=== PATIENT | female | born 1940 | race Caucasian/White ===

== ENCOUNTER 2016-03-31 | Outpatient (CLI) | payer MEDICARE, OTHER | END 2016-03-31 14:11 | disposition short-term general hospital (02) | DX: R00.2 Palpitations (principal) | CPT/HCPCS: A0170; A0425; A0426 ==

== ENCOUNTER 2016-03-31 08:45 | Emergency (ER) | payer MEDICARE, OTHER ==
[2016-03-31] MEDS ORDERED: METOPROLOL 5 MG/5 ML VIAL IVP ONE ×2 (09:30→10:37)
[2016-03-31] MEDS ORDERED: METOPROLOL TARTRATE 25 MG TABLET ONE (12:58)
== END 2016-03-31 14:10 | disposition short-term general hospital (02) ==
DX: I48.92 Unspecified atrial flutter (principal); R55 Syncope and collapse; I42.9 Cardiomyopathy, unspecified
CPT/HCPCS: 36415; 80048; 84484; 85025; 93005; 93010; 96374; 96376; 99284; 99285; A9270

== ENCOUNTER 2016-04-04 10:29 | Outpatient (CLI) | payer MEDICARE, OTHER | END 2016-04-04 10:30 | disposition home or self-care (01) | DX: I48.91 Unspecified atrial fibrillation (principal); Z79.01 Long term (current) use of anticoagulants ==

== ENCOUNTER 2016-04-11 13:34 | Outpatient (CLI) | payer MEDICARE, OTHER | END 2016-04-11 13:35 | disposition home or self-care (01) | DX: Z79.01 Long term (current) use of anticoagulants (principal); I48.91 Unspecified atrial fibrillation ==

== ENCOUNTER 2016-04-18 11:55 | Outpatient (CLI) | payer MEDICARE, OTHER | END 2016-04-18 11:56 | disposition home or self-care (01) | DX: I48.91 Unspecified atrial fibrillation (principal); Z79.01 Long term (current) use of anticoagulants ==

== ENCOUNTER 2016-04-25 11:48 | Outpatient (CLI) | payer MEDICARE, OTHER | END 2016-04-25 11:49 | disposition home or self-care (01) | DX: I48.91 Unspecified atrial fibrillation (principal); Z79.01 Long term (current) use of anticoagulants ==

== ENCOUNTER 2016-05-04 12:19 | Outpatient (CLI) | payer MEDICARE, OTHER | END 2016-05-04 12:20 | disposition home or self-care (01) | DX: I48.91 Unspecified atrial fibrillation (principal); Z79.01 Long term (current) use of anticoagulants ==

== ENCOUNTER 2016-05-14 11:43 | Outpatient (CLI) | payer MEDICARE, OTHER | END 2016-05-14 11:44 | disposition home or self-care (01) | DX: I48.91 Unspecified atrial fibrillation (principal); Z79.01 Long term (current) use of anticoagulants ==

== ENCOUNTER 2016-05-21 23:44 | Emergency (ER) | payer MEDICARE, OTHER ==
[2016-05-22] MEDS ORDERED: oxyCOD/ACETAMIN 5 MG/325 MG TABLET PO STA ×2 (02:35→03:35)
[2016-05-22] MEDS ORDERED: oxyCOD/ACETAMIN 5 MG/325 MG TABLET PO ONE ×2 (02:38→03:38)
== END 2016-05-22 03:51 | disposition home or self-care (01) ==
DX: M96.841 Postprocedural hematoma of a musculoskeletal structure following other procedure (principal); Y83.8 Other surgical procedures as the cause of abnormal reaction of the patient, or of later complication, without mention of misadventure at the time of the procedure; Z79.01 Long term (current) use of anticoagulants; R03.0 Elevated blood-pressure reading, without diagnosis of hypertension; M54.5 Low back pain; R01.1 Cardiac murmur, unspecified
CPT/HCPCS: 36415; 85025; 85610; 93971; 99283; 99284; A9270

== ENCOUNTER 2016-05-29 11:42 | Outpatient (CLI) | payer MEDICARE, OTHER | END 2016-05-29 11:43 | disposition home or self-care (01) | DX: I48.91 Unspecified atrial fibrillation (principal); Z79.01 Long term (current) use of anticoagulants ==

== ENCOUNTER 2016-06-05 12:14 | Outpatient (CLI) | payer MEDICARE, OTHER | END 2016-06-05 12:15 | disposition home or self-care (01) | DX: I48.91 Unspecified atrial fibrillation (principal); Z79.01 Long term (current) use of anticoagulants ==

== ENCOUNTER 2016-06-19 11:57 | Outpatient (CLI) | payer MEDICARE, OTHER | END 2016-06-19 11:58 | disposition home or self-care (01) | DX: Z79.01 Long term (current) use of anticoagulants (principal); I48.91 Unspecified atrial fibrillation ==

== ENCOUNTER 2016-07-04 11:57 | Outpatient (CLI) | payer MEDICARE, OTHER | END 2016-07-04 11:58 | disposition home or self-care (01) | DX: Z79.01 Long term (current) use of anticoagulants (principal); I48.91 Unspecified atrial fibrillation ==

== ENCOUNTER 2016-08-01 16:46 | Outpatient (CLI) | payer MEDICARE, OTHER | END 2016-08-01 16:47 | disposition home or self-care (01) | LOC: LAB 16:46 | PROVIDERS: ATTEND Internal Medicine | DX: Z79.01 Long term (current) use of anticoagulants (principal) | CPT/HCPCS: 85610 ==

== ENCOUNTER 2016-09-05 13:11 | Outpatient (CLI) | payer MEDICARE, OTHER | END 2016-09-05 13:12 | disposition home or self-care (01) | LOC: LAB 13:11 | PROVIDERS: ATTEND Internal Medicine | DX: Z79.01 Long term (current) use of anticoagulants (principal) | CPT/HCPCS: 85610 ==

== ENCOUNTER 2016-09-12 13:42 | Outpatient (CLI) | payer MEDICARE, OTHER | END 2016-09-12 13:43 | disposition home or self-care (01) | LOC: LAB 13:42 | PROVIDERS: ATTEND Internal Medicine | DX: Z79.01 Long term (current) use of anticoagulants (principal) | CPT/HCPCS: 85610 ==

== ENCOUNTER 2016-09-19 17:57 | Outpatient (CLI) | payer MEDICARE, OTHER | END 2016-09-19 17:58 | disposition home or self-care (01) | LOC: LAB 17:57 | PROVIDERS: ATTEND Internal Medicine | DX: I48.91 Unspecified atrial fibrillation (principal); Z79.01 Long term (current) use of anticoagulants | CPT/HCPCS: 85610 ==

== ENCOUNTER 2016-09-26 16:41 | Outpatient (CLI) | payer MEDICARE, OTHER | END 2016-09-26 16:42 | disposition home or self-care (01) | LOC: LAB 16:41 | PROVIDERS: ATTEND Internal Medicine | DX: Z79.01 Long term (current) use of anticoagulants (principal) | CPT/HCPCS: 85610 ==

== ENCOUNTER 2016-10-03 16:55 | Outpatient (CLI) | payer MEDICARE, OTHER | END 2016-10-03 16:56 | disposition home or self-care (01) | LOC: LAB 16:55 | PROVIDERS: ATTEND Internal Medicine | DX: Z79.01 Long term (current) use of anticoagulants (principal) | CPT/HCPCS: 85610 ==

== ENCOUNTER 2016-10-10 17:33 | Outpatient (CLI) | payer MEDICARE, OTHER | END 2016-10-10 17:34 | disposition home or self-care (01) | LOC: LAB 17:33 | PROVIDERS: ATTEND Nurse Practitioner Primary Care | DX: Z79.01 Long term (current) use of anticoagulants (principal) | CPT/HCPCS: 85610 ==

== ENCOUNTER 2016-11-19 11:14 | Outpatient (CLI) | payer MEDICARE, OTHER | END 2016-11-19 11:15 | disposition home or self-care (01) | LOC: LAB 11:14 | PROVIDERS: ATTEND Internal Medicine | DX: I48.91 Unspecified atrial fibrillation (principal); Z79.01 Long term (current) use of anticoagulants | CPT/HCPCS: 85610 ==

== ENCOUNTER 2016-12-17 15:17 | Outpatient (CLI) | payer MEDICARE, OTHER | END 2016-12-17 15:18 | disposition home or self-care (01) | LOC: LAB 15:17 | PROVIDERS: ATTEND Internal Medicine | DX: Z79.01 Long term (current) use of anticoagulants (principal); I48.91 Unspecified atrial fibrillation | CPT/HCPCS: 85610 ==

== ENCOUNTER 2017-01-15 11:44 | Outpatient (CLI) | payer MEDICARE, OTHER | END 2017-01-15 11:45 | disposition home or self-care (01) | LOC: LAB 11:44 | PROVIDERS: ATTEND Internal Medicine | DX: Z79.01 Long term (current) use of anticoagulants (principal); I48.91 Unspecified atrial fibrillation | CPT/HCPCS: 85610 ==

== ENCOUNTER 2017-02-13 10:41 | Outpatient (CLI) | payer MEDICARE, OTHER | END 2017-02-13 10:42 | disposition home or self-care (01) | LOC: LAB 10:41 | PROVIDERS: ATTEND Internal Medicine | DX: Z79.01 Long term (current) use of anticoagulants (principal); I48.91 Unspecified atrial fibrillation | CPT/HCPCS: 85610 ==

== ENCOUNTER 2017-02-27 16:52 | Outpatient (CLI) | payer MEDICARE, OTHER | END 2017-02-27 16:53 | disposition home or self-care (01) | LOC: LAB 16:52 | PROVIDERS: ATTEND Internal Medicine | DX: Z79.01 Long term (current) use of anticoagulants (principal); I48.91 Unspecified atrial fibrillation | CPT/HCPCS: 85610 ==

== ENCOUNTER 2017-03-06 14:34 | Outpatient (CLI) | payer MEDICARE, OTHER | END 2017-03-06 14:35 | disposition home or self-care (01) | LOC: LAB 14:34 | PROVIDERS: ATTEND Internal Medicine | DX: Z79.01 Long term (current) use of anticoagulants (principal); I48.91 Unspecified atrial fibrillation | CPT/HCPCS: 85610 ==

== ENCOUNTER 2017-03-13 12:44 | Outpatient (CLI) | payer MEDICARE, OTHER | END 2017-03-13 12:45 | disposition home or self-care (01) | LOC: LAB 12:44 | PROVIDERS: ATTEND Internal Medicine | DX: Z79.01 Long term (current) use of anticoagulants (principal); I48.91 Unspecified atrial fibrillation | CPT/HCPCS: 85610 ==

== ENCOUNTER 2017-03-25 11:15 | Outpatient (CLI) | payer MEDICARE, OTHER | END 2017-03-25 11:16 | disposition home or self-care (01) | LOC: LAB 11:15 | PROVIDERS: ATTEND Internal Medicine | DX: Z79.01 Long term (current) use of anticoagulants (principal); I48.91 Unspecified atrial fibrillation | CPT/HCPCS: 85610 ==

== ENCOUNTER 2017-04-22 11:38 | Outpatient (CLI) | payer MEDICARE, OTHER | END 2017-04-22 11:39 | disposition home or self-care (01) | LOC: LAB 11:38 | PROVIDERS: ATTEND Internal Medicine | DX: I48.91 Unspecified atrial fibrillation (principal); Z79.01 Long term (current) use of anticoagulants | CPT/HCPCS: 85610 ==

== ENCOUNTER 2017-05-22 11:02 | Outpatient (CLI) | payer MEDICARE, OTHER | END 2017-05-22 11:03 | disposition home or self-care (01) | LOC: LAB 11:02 | PROVIDERS: ATTEND Internal Medicine | DX: Z79.01 Long term (current) use of anticoagulants (principal); I48.91 Unspecified atrial fibrillation | CPT/HCPCS: 85610 ==

== ENCOUNTER 2017-06-05 13:01 | Outpatient (CLI) | payer MEDICARE, OTHER | END 2017-06-05 13:02 | disposition home or self-care (01) | LOC: LAB 13:01 | PROVIDERS: ATTEND Internal Medicine | DX: I48.91 Unspecified atrial fibrillation (principal); Z79.01 Long term (current) use of anticoagulants | CPT/HCPCS: 85610 ==

== ENCOUNTER 2017-07-03 10:17 | Outpatient (CLI) | payer MEDICARE, OTHER | END 2017-07-03 10:18 | disposition home or self-care (01) | LOC: LAB 10:17 | PROVIDERS: ATTEND Internal Medicine | DX: I48.91 Unspecified atrial fibrillation (principal); Z79.01 Long term (current) use of anticoagulants | CPT/HCPCS: 85610 ==

== ENCOUNTER 2017-07-31 11:36 | Outpatient (CLI) | payer MEDICARE, OTHER | END 2017-07-31 11:37 | disposition home or self-care (01) | LOC: LAB 11:36 | PROVIDERS: ATTEND Internal Medicine | DX: I48.91 Unspecified atrial fibrillation (principal); Z79.01 Long term (current) use of anticoagulants | CPT/HCPCS: 85610 ==

== ENCOUNTER 2017-08-28 11:58 | Outpatient (CLI) | payer MEDICARE, OTHER | END 2017-08-28 11:59 | disposition home or self-care (01) | LOC: LAB 11:58 | PROVIDERS: ATTEND Internal Medicine | DX: I48.91 Unspecified atrial fibrillation (principal); Z79.01 Long term (current) use of anticoagulants | CPT/HCPCS: 85610 ==

== ENCOUNTER 2017-09-25 11:19 | Outpatient (CLI) | payer MEDICARE, OTHER | END 2017-09-25 11:20 | disposition home or self-care (01) | LOC: LAB 11:19 | PROVIDERS: ATTEND Internal Medicine | DX: I48.91 Unspecified atrial fibrillation (principal); Z79.01 Long term (current) use of anticoagulants | CPT/HCPCS: 85610 ==

== ENCOUNTER 2017-10-14 12:03 | Outpatient (CLI) | payer MEDICARE, OTHER | END 2017-10-14 12:04 | disposition home or self-care (01) | LOC: LAB 12:03 | PROVIDERS: ATTEND Internal Medicine | DX: Z79.01 Long term (current) use of anticoagulants (principal); I48.91 Unspecified atrial fibrillation | CPT/HCPCS: 85610 ==

== ENCOUNTER 2017-11-13 13:08 | Outpatient (CLI) | payer MEDICARE, OTHER | END 2017-11-13 13:09 | disposition home or self-care (01) | LOC: LAB 13:08 | PROVIDERS: ATTEND Internal Medicine | DX: I48.91 Unspecified atrial fibrillation (principal); Z79.01 Long term (current) use of anticoagulants | CPT/HCPCS: 85610 ==

== ENCOUNTER 2017-11-27 13:08 | Outpatient (CLI) | payer MEDICARE, OTHER | END 2017-11-27 13:09 | disposition home or self-care (01) | LOC: LAB 13:08 | PROVIDERS: ATTEND Internal Medicine | DX: Z79.01 Long term (current) use of anticoagulants (principal); I48.91 Unspecified atrial fibrillation | CPT/HCPCS: 85610 ==

== ENCOUNTER 2017-12-25 12:35 | Outpatient (CLI) | payer MEDICARE, OTHER | END 2017-12-25 12:36 | disposition home or self-care (01) | LOC: LAB 12:35 | PROVIDERS: ATTEND Internal Medicine | DX: Z79.01 Long term (current) use of anticoagulants (principal); I48.91 Unspecified atrial fibrillation | CPT/HCPCS: 85610 ==

== ENCOUNTER 2017-12-30 11:57 | Emergency (ER) | payer MEDICARE, OTHER ==
--- NOTE | 2017-12-30 12:30 | ED Physician Documentation ---
PD HPI CHEST PAIN - Stated complaint Stated Complaint: AFIB PER DR WANG - Chief complaint Chief Complaint: Cardiac - History obtained from History obtained from: Patient - History of Present Illness Timing - onset: How many days ago (2) Timing - onset during: Light activity Timing - duration: Days (2) Timing - details: Abrupt onset, Still present, Waxing and waning Quality: Tightness Location: Substernal Improved by: Rest Worsened by: Exertion Associated symptoms: Feeling faint / dizzy, Palpitations. No: Diaphoresis, Nausea, General Weakness Similar symptoms before: Diagnosis (atrial fib) Recently seen: Not recently seen Review of Systems Constitutional: denies: Fever, Chills Nose: denies: Rhinorrhea / runny nose, Congestion Throat: denies: Sore throat Cardiac: reports: Chest pain / pressure, Palpitations. denies: Pedal edema, Calf pain Respiratory: denies: Cough, Wheezing GI: denies: Abdominal Pain, Nausea, Vomiting Skin: denies: Rash Musculoskeletal: denies: Extremity swelling Neurologic: reports: Generalized weakness. 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 : None HEENT: None Psych: None Musculoskeletal: None Derm: None - Past Surgical History Past Surgical History: Yes General: Appendectomy, Bowel surgery - Present Medications Home Medications: Ambulatory Orders Medication Instructions Recorded Confirmed Multivitamin [Multi-Vitamin Daily] 1 each PO DAILY 07/03/12 07/12/14 RX: Dronedarone HCl [Multaq] 400 mg BID 12/30/17 12/30/17 RX: Metoprolol Tartrate BID 12/30/17 RX: Warfarin [Coumadin] DAILY 12/30/17 - Allergies Allergies/Adverse Reactions: Allergies Allergy/AdvReac Type Severity Reaction Status Date / Time No Known Drug Allergies Allergy Verified 12/30/17 12:23 - Social History Does the pt smoke?: No Smoking Status: Never smoker Does the pt drink ETOH?: Yes Does the pt have substance abuse?: No - Family History Family history: reports: CAD - Immunizations Immunizations are current?: Yes - POLST Patient has POLST: No PD ED PE NORMAL - Vitals Vital signs reviewed: Yes - General General: Alert and oriented X 3, No acute distress, Well developed/nourished - HEENT HEENT: Moist mucous membranes, Pharynx benign - Neck Neck: Supple, no meningeal sign, No adenopathy - Cardiac Cardiac: No murmur. No: RRR (irregular and fast) - Respiratory Respiratory: No respiratory distress, Clear bilaterally - Abdomen Abdomen: Normal bowel sounds, Soft, Non tender, Non distended, No organomegaly - Derm Derm: Normal color, Warm and dry - Extremities Extremities: No tenderness to palpate, Normal ROM s pain, No edema, No calf tenderness / cord - Neuro Neuro: Alert and oriented X 3, No motor deficit, Normal speech Results - Vitals Vitals: Vital Signs - 24 hr 12/30/17 12/30/17 12/30/17 12:12 13:45 13:50 Temperature 36.2 C L Heart Rate 144 H 92 92 Respiratory 16 17 19 Rate Blood Pressure 114/83 H O2 Saturation 94 97 12/30/17 12/30/17 12/30/17 14:00 14:15 14:20 Temperature Heart Rate 46 L 45 L 37 L Respiratory 18 12 14 Rate Blood Pressure 164/76 H 105/56 L O2 Saturation 98 99 12/30/17 12/30/17 12/30/17 14:30 15:00 15:30 Temperature Heart Rate 35 L 35 L 37 L Respiratory 15 18 15 Rate Blood Pressure 119/55 L 113/62 134/54 H O2 Saturation 98 98 95 Oxygen O2 Source Room air - EKG (time done) arrival Rate: Rate (enter#) (144) Rhythm: Atrial flutter [place]: Normal QRS: Normal Ischemia: Normal ST segments. No: ST elevation c/w ischemia, ST depression post cardioversion Rate: Rate (enter#) (48) Rhythm: Sinus bradycardia [place]: Normal Intervals: Normal [place] QRS: Normal Ischemia: Normal ST segments. No: ST elevation c/w ischemia, ST depression Compare to prior EKG: Changed from prior EKG (converted to NSR) - Labs Labs: Laboratory Tests 12/30/17 12/30/17 12/30/17 13:00 13:00 13:32 WBC 6.7 RBC 5.17 Hgb 15.7 Hct 46.3 MCV 89.5 MCH 30.4 MCHC 33.9 RDW 14.9 Plt Count 213 MPV 8.9 Neut # (Auto) 4.7 Lymph # (Auto) 1.3 L [place] # (Auto) 0.6 Eos # (Auto) 0.0 Baso # (Auto) 0.1 Absolute Nucleated RBC 0.00 Nucleated RBC % 0.0 PT 32.7 H INR 3.0 H Sodium 137 Potassium 4.5 Chloride 104 Carbon Dioxide 22 Anion Gap 11.0 BUN 23 H Creatinine 1.0 Estimated GFR (MDRD) 54 L Glucose 99 Calcium 9.4 Magnesium 2.5 Total Bilirubin 1.0 AST 33 ALT 59 Alkaline Phosphatase 57 Total Protein 7.6 Albumin 4.5 Globulin 3.1 Albumin/Globulin Ratio 1.5 Lipase 35 Procedures - Cardioversion one Indication: Tachyarrhythmia Risks, benefits, alternatives explained to: Pt Prep: IV, O2, gambling monitor, Pulse ox, Airway equip Meds: Etomidate CS via: Pads, AP approach Sync: Biphasic Complications: No: Contact burn, Hypotension Performed by: ED MD PD MEDICAL DECISION MAKING - ED course Complexity details: re-evaluated patient, considered differential (patient stable but with atrial fib/flutter for 2-3 days and history of cardioversion few times in the past. Shee would prefer cardioversion as most successful. ), d/w patient Departure - Departure Disposition: 01 Home, Self Care Clinical Impression: Atrial fibrillation with rapid ventricular response Condition: Stable Record reviewed to determine appropriate education?: Yes Instructions: ED Afib, ED Cardioversion Electrical Follow-Up: Anthony Wang MD [Primary Care Provider] - Comments: Continue current medications for now. Contact your early childhood associate office to see if follow-up on the ninth is still appropriate or if they want to see you sooner. Drink lots of fluids. Return if needed. You may be somewhat sore in the chest for the next day or 2 and use some Tylenol if needed for pains. Discharge Date/Time: 12/30/17 15:39
[2017-12-30] MEDS ORDERED: SODIUM CHLORIDE 0.9% 500 ML IV ONE (12:47)
[2017-12-30 13:05] LABS: BASOPHILS # (AUTO) 0.1 10^3/uL (0.0-0.1); BASOPHILS % (AUTO) 0.8 %; EOSINOPHILS % (AUTO) 0.5 %; HGB - HEMOGLOBIN 15.7 g/dL (12.0-16.0); LYMPHOCYTES # (AUTO) 1.3 10^3/uL (1.5-3.5); LYMPHOCYTES % (AUTO) 19.8 %; MEAN CORPUSCULAR HEMOGLOBIN 30.4 pg (27.0-31.0); MEAN CORPUSCULAR HGB CONC 33.9 g/dL (32.0-36.0); MEAN CORPUSCULAR VOLUME 89.5 fL (81.0-99.0); MEAN PLATELET VOLUME 8.9 fL (7.9-10.8); MONOCYTES # (AUTO) 0.6 10^3/uL (0.0-1.0); NEUTROPHILS # (AUTO) 4.7 10^3/uL (1.5-6.6); NEUTROPHILS % (AUTO) 69.9 %; PLT - PLATELET COUNT 213 10^3/uL (130-450); RED BLOOD COUNT 5.17 10^6/uL (4.20-5.40); RED CELL DISTRIBUTION WIDTH 14.9 % (12.0-15.0); WHITE BLOOD COUNT 6.7 x10^3/uL (4.8-10.8)
[2017-12-30 13:22] LABS: ALBUMIN 4.5 g/dL (3.2-5.5); ALBUMIN/GLOBULIN RATIO 1.5 (1.0-2.2); CALCIUM 9.4 mg/dL (8.5-10.3); MAGNESIUM 2.5 mg/dL (1.7-2.8); TOTAL PROTEIN 7.6 g/dL (6.7-8.2)
[2017-12-30] MEDS ORDERED: ETOMIDATE 40 MG/20 ML VIAL IVP STA (13:46)
[2017-12-30 13:47] LABS: PT - PROTHROMBIN TIME 32.7 secs (9.9-12.6)
[2017-12-30] MEDS ORDERED: ETOMIDATE 40 MG/20 ML VIAL IVP ONE (13:50)
[2017-12-30 23:21] VITALS: BP 134/54
== END 2017-12-30 15:39 | disposition home or self-care (01) ==
LOC: ED 11:57
DX: I48.91 Unspecified atrial fibrillation (principal); I48.92 Unspecified atrial flutter; R00.1 Bradycardia, unspecified; E78.00 Pure hypercholesterolemia, unspecified
CPT/HCPCS: 36415; 80053; 83690; 83735; 84484; 85025; 85610; 92960; 93005; 94770; 96360; 99284

== ENCOUNTER 2018-01-17 12:45 | Emergency (ER) | payer MEDICARE, OTHER ==
--- NOTE | 2018-01-17 14:22 | ED Physician Documentation ---
History of Present Illness - Stated complaint Stated Complaint: RAPID HR - Chief complaint Chief Complaint: Cardiac - History obtained from History obtained from: Patient, Family (spouse) - History of Present Illness Timing: Yesterday - Additonal information Additional information: The patient is a 78-year-old female with a history of atrial fib/flutter, who presents with rapid heart rate that started yesterday morning and has persisted since that time. She feels fatigued, but denies chest pain, shortness of breath, or lightheadedness. She has history of similar symptoms in the past. She underwent electrocardioversion here 2 1/2 weeks ago. She has undergone cardiac ablation twice in the past. Current medications include warfarin, metoprolol, and dronedarone. Her metoprolol dose was cut in half one week ago because of bradycardia into the 30s. Review of Systems Constitutional: reports: Fatigue. denies: Fever Ears: denies: Tinnitus/ringing Nose: denies: Congestion Throat: denies: Sore throat Cardiac: reports: Palpitations. 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 : None HEENT: None Psych: None Musculoskeletal: None Derm: None - Past Surgical History Past Surgical History: Yes General: Appendectomy, Bowel surgery - Present Medications Home Medications: Ambulatory Orders Medication Instructions Recorded Confirmed Multivitamin [Multi-Vitamin Daily] 1 each PO DAILY 07/03/12 07/12/14 Dronedarone HCl [Multaq] 400 mg BID 12/30/17 12/30/17 Metoprolol Tartrate BID 12/30/17 Warfarin [Coumadin] DAILY 12/30/17 - Allergies Allergies/Adverse Reactions: Allergies Allergy/AdvReac Type Severity Reaction Status Date / Time No Known Drug Allergies Allergy Verified 01/17/18 13:08 - Social History Does the pt smoke?: No Smoking Status: Never smoker Does the pt drink ETOH?: Yes Does the pt have substance abuse?: No - Immunizations Immunizations are current?: Yes Immunizations: TDAP >10years/unknown - POLST Patient has POLST: No PD ED PE NORMAL - Vitals Vital signs reviewed: Yes (rapid heart rate, hypertension) - General General: Alert and oriented X 3, Well developed/nourished - HEENT HEENT: Atraumatic, Moist mucous membranes, Pharynx benign - Neck Neck: No adenopathy, No JVD - Cardiac Cardiac: No murmur, Other (Rapid rate, regular rhythm.) - Respiratory Respiratory: No respiratory distress, Clear bilaterally - Abdomen Abdomen: Soft, Non tender - Back Back: No CVA TTP, No spinal TTP - Derm Derm: No rash - Extremities Extremities: No edema, No calf tenderness / cord - Neuro Neuro: Alert and oriented X 3, No motor deficit, Normal speech Results - Vitals Vitals: Oxygen O2 Source Room air - EKG (time done) 13:15 Rate: Rate (enter#) (100) Rhythm: Atrial flutter [place]: Normal Computer interpretation: Disagree with computer (Rhythm is atrial flutter with block.) 15:33 Rate: Rate (enter#) (49) Rhythm: Sinus bradycardia [place]: Normal Intervals: Normal [place] QRS: Normal Ischemia: Normal ST segments Compare to prior EKG: Changed from prior EKG (No longer in atrial flutter, post electrocardioversion.) Computer interpretation: Agree with computer - Labs Labs: Laboratory Tests 01/17/18 01/17/18 01/17/18 14:30 14:30 14:30 WBC 5.6 RBC 4.84 Hgb 14.6 Hct 42.8 MCV 88.5 MCH 30.2 MCHC 34.2 RDW 14.5 Plt Count 180 MPV 8.6 Neut # (Auto) 3.6 Lymph # (Auto) 1.4 L [place] # (Auto) 0.5 Eos # (Auto) 0.1 Baso # (Auto) 0.0 Absolute Nucleated RBC 0.00 Nucleated RBC % 0.0 PT 32.1 H INR 2.9 H Sodium 140 Potassium 4.0 Chloride 106 Carbon Dioxide 24 Anion Gap 10.0 BUN 17 Creatinine 0.7 Estimated GFR (MDRD) 81 L Glucose 92 Calcium 9.0 Total Bilirubin 1.0 AST 23 ALT 43 Alkaline Phosphatase 52 Troponin I Total Protein 6.6 L Albumin 4.1 Globulin 2.5 Albumin/Globulin Ratio 1.6 Lipase 40 11/16/18 14:30 WBC RBC Hgb Hct MCV MCH MCHC RDW Plt Count MPV Neut # (Auto) Lymph # (Auto) [place] # (Auto) Eos # (Auto) Baso # (Auto) Absolute Nucleated RBC Nucleated RBC % PT INR Sodium Potassium Chloride Carbon Dioxide Anion Gap BUN Creatinine Estimated GFR (MDRD) Glucose Calcium Total Bilirubin AST ALT Alkaline Phosphatase Troponin I < 0.04 Total Protein Albumin Globulin Albumin/Globulin Ratio Lipase Procedures - Cardioversion 1 Indication: Tachyarrhythmia Risks, benefits, alternatives explained to: Pt Prep: IV, O2, rigging man, Pulse ox, Airway equip Meds: Ativan (1 mg), Propofol (60 mg) CS via: Paddles, AP approach Sync: Biphasic. No: 50j (70 joules) Post cardioversion rhythm: Other (sinus bradycardia) Performed by: ED MD MEDICAL DECISION MAKING - ED course Complexity details: reviewed old records, reviewed results, re-evaluated patient, considered differential, d/w patient, d/w family ED course: The patient's presentation is significant for atrial flutter with block. She complained of fatigue, and mild lightheadedness. INR is in therapeutic range at 2.9. Treatment in the emergency department included cardioversion at 70 J, after administration of Ativan 1 mg IV and propofol 60 mg IV. Subsequent rhythm is sinus bradycardia. The patient tolerated the procedure well. 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 I discussed with her and her potentially worrisome signs or symptoms that should prompt reevaluation in the emergency department. Departure - Departure Disposition: 01 Home, Self Care Clinical Impression: Atrial flutter with rapid ventricular response, Encounter for cardioversion procedure Condition: Stable Instructions: ED Paroxysmal Atrial Flutter, ED Cardioversion Electrical Follow-Up: Anthony Davila MD [Primary Care Provider] - Comments: Continue your cardiac medications as previously prescribed. Follow-up with the cut out marker as scheduled, or sooner if possible. Return to the emergency department if you develop recurrent atrial flutter or fibrillation, chest pain, shortness of breath, or otherwise worsening symptoms. Discharge Date/Time: 01/17/18 16:40
[2018-01-17 14:47] LABS: BASOPHILS % (AUTO) 0.6 %; EOSINOPHILS # (AUTO) 0.1 10^3/uL (0.0-0.7); EOSINOPHILS % (AUTO) 1.5 %; HGB - HEMOGLOBIN 14.6 g/dL (12.0-16.0); LYMPHOCYTES # (AUTO) 1.4 10^3/uL (1.5-3.5); LYMPHOCYTES % (AUTO) 24.4 %; MEAN CORPUSCULAR HEMOGLOBIN 30.2 pg (27.0-31.0); MEAN CORPUSCULAR HGB CONC 34.2 g/dL (32.0-36.0); MEAN CORPUSCULAR VOLUME 88.5 fL (81.0-99.0); MEAN PLATELET VOLUME 8.6 fL (7.9-10.8); MONOCYTES # (AUTO) 0.5 10^3/uL (0.0-1.0); MONOCYTES % (AUTO) 9.7 %; NEUTROPHILS # (AUTO) 3.6 10^3/uL (1.5-6.6); NEUTROPHILS % (AUTO) 63.8 %; PLT - PLATELET COUNT 180 10^3/uL (130-450); RED BLOOD COUNT 4.84 10^6/uL (4.20-5.40); RED CELL DISTRIBUTION WIDTH 14.5 % (12.0-15.0); WHITE BLOOD COUNT 5.6 x10^3/uL (4.8-10.8)
[2018-01-17 15:01] LABS: ALBUMIN 4.1 g/dL (3.2-5.5); ALBUMIN/GLOBULIN RATIO 1.6 (1.0-2.2); CREATININE 0.7 mg/dL (0.4-1.0); TOTAL PROTEIN 6.6 g/dL (6.7-8.2)
[2018-01-17 15:03] LABS: INR 2.9 (0.8-1.2); PT - PROTHROMBIN TIME 32.1 secs (9.9-12.6)
[2018-01-17] MEDS ORDERED: PROPOFOL 200 MG/20 ML VIAL IVP STA (15:08)
[2018-01-17] MEDS ORDERED: LORazepam 2 MG/ML VIAL IVP STA (15:08)
[2018-01-17 17:06] VITALS: BP 110/49
== END 2018-01-17 16:40 | disposition home or self-care (01) ==
LOC: ED 12:45
DX: I48.92 Unspecified atrial flutter (principal); I45.9 Conduction disorder, unspecified; R00.1 Bradycardia, unspecified; Z79.01 Long term (current) use of anticoagulants
CPT/HCPCS: 36415; 80053; 83690; 84484; 85025; 85610; 92960; 93005; 94770; 99284; J2060; 96374; 96375

== ENCOUNTER 2018-01-22 11:28 | Outpatient (CLI) | payer MEDICARE, OTHER ==
--- NOTE | 2018-01-24 08:36 | Mammography Report ---
Reason: ANNUAL SCREENING Procedure Date: 01/22/2018 Accession Number: [id number] / [id number] Procedure: H[facility]Y - Screening Mammo w/[facility] CPT Code: FULL RESULT: EXAM: Screening Mammo w/[facility] DATE: 01/22/2018 12:10 PM CLINICAL HISTORY: 78-year-old female with history of late childbearing and early menses as well as family history of breast cancer in a sister at age 61 and aunt at age 70. The patient is here for screening. TECHNIQUE: Bilateral CC and MLO views were obtained. COMPARISON: 06/07/2015, 05/27/2014, 12/18/2011, 12/13/2011. FINDINGS: The breasts demonstrate scattered fibroglandular densities bilaterally. No suspicious masses, clustered microcalcifications, or regions of architectural distortion are identified. IMPRESSION: Negative examination RECOMMENDATION: Routine annual screening unless otherwise clinically indicated. BIRADS CATEGORY 1: Negative STANDARD QUALIFYING STATEMENTS: 1. This examination was not reviewed with the aid of Computer-Aided Detection (CAD). 2. A negative or benign imaging report should not delay biopsy if clinically suspicious findings are present. Consider surgical consultation if warranted. More than 5% of cancers are not identified by imaging. 3. Dense breasts may obscure an underlying neoplasm. 4. This examination was reviewed with the aid of 3D breast imaging (tomosynthesis).
== END 2018-01-22 11:29 | disposition home or self-care (01) ==
LOC: DI 11:28
DX: Z12.31 Encounter for screening mammogram for malignant neoplasm of breast (principal); Z80.3 Family history of malignant neoplasm of breast
CPT/HCPCS: 77063; 77067

== ENCOUNTER 2018-02-14 10:48 | Emergency (ER) | payer MEDICARE, OTHER ==
[2018-02-14] MEDS ORDERED: SODIUM CHLORIDE 0.9% 500 ML IV ONE (11:12)
[2018-02-14 11:14] LABS: BASOPHILS % (AUTO) 0.5 %; EOSINOPHILS # (AUTO) 0.1 10^3/uL (0.0-0.7); EOSINOPHILS % (AUTO) 1.1 %; HGB - HEMOGLOBIN 16.1 g/dL (12.0-16.0); LYMPHOCYTES # (AUTO) 1.6 10^3/uL (1.5-3.5); LYMPHOCYTES % (AUTO) 23.1 %; MEAN CORPUSCULAR HEMOGLOBIN 30.2 pg (27.0-31.0); MEAN CORPUSCULAR VOLUME 88.7 fL (81.0-99.0); MEAN PLATELET VOLUME 8.7 fL (7.9-10.8); MONOCYTES # (AUTO) 0.8 10^3/uL (0.0-1.0); MONOCYTES % (AUTO) 11.4 %; NEUTROPHILS # (AUTO) 4.4 10^3/uL (1.5-6.6); NEUTROPHILS % (AUTO) 63.9 %; PLT - PLATELET COUNT 197 10^3/uL (130-450); RED BLOOD COUNT 5.35 10^6/uL (4.20-5.40); WHITE BLOOD COUNT 6.9 x10^3/uL (4.8-10.8)
[2018-02-14] MEDS ORDERED: diltiaZEM INJ 5 MG/ML VIAL IVP STA ×2 (11:15→12:48)
--- NOTE | 2018-02-14 11:17 | ED Physician Documentation ---
History of Present Illness - Stated complaint Stated Complaint: RAPID HR/FATIGUE - Chief complaint Chief Complaint: Cardiac - History obtained from History obtained from: Patient, Family - History of Present Illness Timing: Yesterday - Additonal information Additional information: 78 y/o female with a history of afib s/p cardioversion a number of times previously has developed symptoms early yesterday and has had symptoms overnight and into the day today. She reports that she feels difficulty concentrating and fatigue for symptoms. She has an appointment to see the track equipment operator in 4 days. Review of Systems Constitutional: denies: Fever, Chills, Myalgias Eyes: denies: Decreased vision Ears: denies: Ear pain Nose: denies: Rhinorrhea / runny nose, Congestion Throat: denies: Sore throat Cardiac: reports: Palpitations. denies: Chest pain / pressure, Pedal edema, Calf pain Respiratory: denies: Dyspnea, Cough, Wheezing GI: denies: Abdominal Pain, Nausea, Vomiting : denies: Dysuria, Frequency Skin: denies: Rash Musculoskeletal: denies: Neck pain, Back pain, Extremity pain Neurologic: reports: Difficulty speaking. 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 : None HEENT: None Psych: None Musculoskeletal: None Derm: None - Past Surgical History Past Surgical History: Yes General: Appendectomy, Bowel surgery - Present Medications Home Medications: Ambulatory Orders Medication Instructions Recorded Confirmed Multivitamin [Multi-Vitamin Daily] 1 each PO DAILY 07/03/12 07/12/14 Dronedarone HCl [Multaq] 400 mg BID 12/30/17 12/30/17 Metoprolol Tartrate BID 12/30/17 Warfarin [Coumadin] DAILY 12/30/17 - Allergies Allergies/Adverse Reactions: Allergies Allergy/AdvReac Type Severity Reaction Status Date / Time No Known Drug Allergies Allergy Verified 02/14/18 10:57 - Social History Does the pt smoke?: No Smoking Status: Never smoker Does the pt drink ETOH?: Yes Does the pt have substance abuse?: No - Immunizations Immunizations are current?: Yes Immunizations: TDAP >10years/unknown - POLST Patient has POLST: No PD ED PE NORMAL - Vitals Vital signs reviewed: Yes (tachy and hypertensive ) - General General: Alert and oriented X 3, No acute distress, Well developed/nourished - HEENT HEENT: Atraumatic, PERRL, EOMI - Neck Neck: Supple, no meningeal sign, No bony TTP - Cardiac Cardiac: No murmur, Other (tachy to 100 seems regular ) - Respiratory Respiratory: No respiratory distress, Clear bilaterally - Abdomen Abdomen: Soft, Non tender - Back Back: No CVA TTP, No spinal TTP - Derm Derm: Normal color, Warm and dry, No rash - Extremities Extremities: No deformity, No edema - Neuro Neuro: Alert and oriented X 3, 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 attaching 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 operator 2-12 intact, No motor deficit, No sensory deficit, Normal speech Eye Opening: Spontaneous Motor: Obeys Commands Verbal: Oriented GCS Score: 15 - Psych Psych: Normal mood, Normal affect Results - Vitals Vitals: Vital Signs - 24 hr 02/14/18 02/14/18 02/14/18 10:50 11:30 13:16 Temperature 36 C L Heart Rate 102 H 58 L 101 H Respiratory 16 18 17 Rate Blood Pressure 147/94 H 125/59 L 125/85 H O2 Saturation 99 97 93 02/14/18 02/14/18 13:49 15:47 Temperature Heart Rate 100 33 L Respiratory 14 18 Rate Blood Pressure 101/47 L O2 Saturation 94 Oxygen O2 Source Nasal cannula Oxygen Flow Rate 0 - EKG (time done) 1056 Rate: Rate (enter#) (101) Rhythm: Other (ectopic atrial tachycardia) Intervals: Prolonged QT Ischemia: Normal ST segments Compare to prior EKG: Unchanged from prior EKG (01-17-18) Computer interpretation: Agree with computer 1411 Rate: Rate (enter#) (34) Rhythm: Other (junctional ) Compare to prior EKG: Changed from prior EKG (SPT from earlier today the rhythm has changed to junctional and the rate has decreased) Computer interpretation: Agree with computer - Labs Labs: Laboratory Tests 02/14/18 02/14/18 02/14/18 11:00 11:00 11:00 WBC 6.9 RBC 5.35 Hgb 16.1 H Hct 47.5 H MCV 88.7 MCH 30.2 MCHC 34.0 RDW 14.0 Plt Count 197 MPV 8.7 Neut # (Auto) 4.4 Lymph # (Auto) 1.6 [place] # (Auto) 0.8 Eos # (Auto) 0.1 Baso # (Auto) 0.0 Absolute Nucleated RBC 0.01 Nucleated RBC % 0.1 PT 26.8 H INR 2.4 H Sodium 136 Potassium 4.1 Chloride 102 Carbon Dioxide 23 Anion Gap 11.0 BUN 23 H Creatinine 0.9 Estimated GFR (MDRD) 61 L Glucose 102 H Calcium 9.3 Total Bilirubin 1.2 H AST 27 ALT 25 Alkaline Phosphatase 60 Troponin I Total Protein 7.8 Albumin 4.5 Globulin 3.3 Albumin/Globulin Ratio 1.4 Lipase 27 Urine Color Urine Clarity Urine pH Ur Specific [place] Urine Protein Urine Glucose (UA) Urine Ketones Urine Occult Blood Urine Nitrite Urine Bilirubin Urine Urobilinogen Ur Leukocyte Esterase Ur Microscopic Review Urine Culture Comments 02/14/18 02/14/18 11:00 12:40 WBC RBC Hgb Hct MCV MCH MCHC RDW Plt Count MPV Neut # (Auto) Lymph # (Auto) [place] # (Auto) Eos # (Auto) Baso # (Auto) Absolute Nucleated RBC Nucleated RBC % PT INR Sodium Potassium Chloride Carbon Dioxide Anion Gap BUN Creatinine Estimated GFR (MDRD) Glucose Calcium Total Bilirubin AST ALT Alkaline Phosphatase Troponin I < 0.04 Total Protein Albumin Globulin Albumin/Globulin Ratio Lipase Urine Color LT. YELLOW Urine Clarity CLEAR Urine pH 6.5 Ur Specific [place] <=1.005 Urine Protein NEGATIVE Urine Glucose (UA) NEGATIVE Urine Ketones NEGATIVE Urine Occult Blood TRACE-INTA Urine Nitrite NEGATIVE Urine Bilirubin NEGATIVE Urine Urobilinogen 0.2 (NORMAL) Ur Leukocyte Esterase NEGATIVE Ur Microscopic Review NOT INDICATED Urine Culture Comments NOT INDICATED Procedures - Procedural sedation Sedation prep: Informed consent, Time out completed, PE performed, AHA 2 - mild disease Sedation medications: etomidate, ativan, given by RN Patient status during sedation: Alert, Responds to tactile, Respiratory depression, Needed resp assistance - Cardioversion 1 Indication: Tachyarrhythmia Risks, benefits, alternatives explained to: Pt Prep: IV, O2, lunchroom monitor, Pulse ox, Airway equip Meds: Ativan, Etomidate CS via: Pads, AP approach Sync: Biphasic (70J) Post cardioversion rhythm: Other (junction) Complications: Apnea. No: Contact burn, Hypotension Performed by: ED MD PD MEDICAL DECISION MAKING - ED course Complexity details: reviewed results, re-evaluated patient, considered differential, d/w patient, d/w family ED course: 78-year-old female with a history of intermittent atrial fibrillation who is symptomatic with atrial fibrillation has requested cardioversion today after being in atrial fibrillation for about 30 hours. She presents to the emergency department with a rate of 101 and we did attempt to use Cardizem to reduce her rate and I was not able to clearly convince myself that the patient was in atrial fibrillation and when her rate was slowed it was apparent she was in atrial flutter with small flutter waves. She remained in aflutter and an attempt at cardioversion with etomidate and ativan was performed with 70j syncronized and this resulted in a junctional rhythm with a rate of 34. The rate and rhythm remained unchanged and Dr. Mccoy software applications developer for Dr. Rapp has recommended observation for expected conversion. The thought being the block with dilt, multac and metoprolol has suppressed the av node and we will need to wait for medication metobolism for the patient to convert. The patient was at rest with a heart rate of 34 for several hours and then she was ambulated to the bathroom and converted to a sinus rhythm. When she layed back down her rhythm changed again to junctional bradycardia at 37 and she is asymptomatic and she is discharged to home to follow up with her fringe knotter. Departure - Departure Disposition: 01 Home, Self Care Clinical Impression: Atrial flutter with rapid ventricular response, Encounter for cardioversion procedure Condition: Stable Instructions: ED Paroxysmal Atrial Flutter Follow-Up: Anthony Davila MD [Primary Care Provider] -
[2018-02-14 11:23] LABS: INR 2.4 (0.8-1.2); PT - PROTHROMBIN TIME 26.8 secs (9.9-12.6)
[2018-02-14 11:25] LABS: ALBUMIN 4.5 g/dL (3.2-5.5); ALBUMIN/GLOBULIN RATIO 1.4 (1.0-2.2); BILIRUBIN,TOTAL 1.2 mg/dL (0.2-1.0); CALCIUM 9.3 mg/dL (8.5-10.3); CREATININE 0.9 mg/dL (0.4-1.0); TOTAL PROTEIN 7.8 g/dL (6.7-8.2)
--- NOTE | 2018-02-14 11:40 | XRAY Report ---
Reason: chest pain Procedure Date: 02/14/2018 Accession Number: [id number] / [id number] Procedure: XR - Chest 1 View X-Ray CPT Code: 02288 FULL RESULT: EXAM: CHEST RADIOGRAPHY EXAM DATE: 02/14/2018 11:16 AM. CLINICAL HISTORY: Chest pain. COMPARISON: 07/12/2014 4:29 PM. TECHNIQUE: 1 view. FINDINGS: Lungs/Pleura: No focal opacities evident. No pleural effusion. No pneumothorax. Mediastinum: Within exam limitations, the cardiomediastinal contour is normal. Other: None. IMPRESSION: Stable exam with no definite acute cardiopulmonary abnormality. RADIA
[2018-02-14 13:02] LABS: BILIRUBIN,URINE NEGATIVE (NEGATIVE); GLUCOSE, URINE (UA) NEGATIVE (NEGATIVE); KETONES,URINE (UA) NEGATIVE (NEGATIVE); LEUKOCYTE ESTERASE, URINE NEGATIVE (NEGATIVE); NITRITE,URINE NEGATIVE (NEGATIVE); OCCULT BLOOD,URINE TRACE-INTA (NEGATIVE); PH,URINE 6.5 PH (5.0-7.5); PROTEIN,URINE NEGATIVE (NEGATIVE); UROBILINOGEN,URINE 0.2 (NORMAL) E.U./dL (NORMAL)
[2018-02-14 13:08] LABS: CLARITY,URINE CLEAR (CLEAR)
[2018-02-14] MEDS ORDERED: LORazepam 2 MG/ML VIAL IVP STA (13:30)
[2018-02-14] MEDS ORDERED: ETOMIDATE 40 MG/20 ML VIAL IVP STA (13:30)
[2018-02-14] MEDS ORDERED: MAGNESIUM SULFATE 2 GRAM 2 GM/50 ML BAG IV ONE ×2 (13:59→14:01)
[2018-02-14 20:09] VITALS: BP 118/62
== END 2018-02-14 19:00 | disposition home or self-care (01) ==
LOC: ED 10:48
DX: I48.91 Unspecified atrial fibrillation (principal); I48.92 Unspecified atrial flutter; I47.1 Supraventricular tachycardia; I45.81 Long QT syndrome; Z79.01 Long term (current) use of anticoagulants; E78.00 Pure hypercholesterolemia, unspecified
CPT/HCPCS: 36415; 71045; 80053; 81003; 83690; 84484; 85025; 85610; 92960; 93005; 94770; 96361; 96365; 96375; 96376; 99152; 99153; 99285; J2060; 81001; 87086

== ENCOUNTER 2018-03-20 13:10 | Outpatient (CLI) | payer MEDICARE, OTHER | END 2018-03-20 13:11 | disposition home or self-care (01) | LOC: LAB 13:10 | PROVIDERS: ATTEND Internal Medicine | DX: I48.91 Unspecified atrial fibrillation (principal); Z79.01 Long term (current) use of anticoagulants | CPT/HCPCS: 85610 ==

== ENCOUNTER 2018-04-08 12:52 | Outpatient (CLI) | payer MEDICARE, OTHER | END 2018-04-08 12:53 | disposition home or self-care (01) | LOC: LAB 12:52 | PROVIDERS: ATTEND Internal Medicine | DX: Z79.01 Long term (current) use of anticoagulants (principal); I48.91 Unspecified atrial fibrillation | CPT/HCPCS: 85610 ==

== ENCOUNTER 2018-05-21 13:44 | Outpatient (CLI) | payer MEDICARE, OTHER | END 2018-05-21 13:45 | disposition home or self-care (01) | LOC: LAB 13:44 | PROVIDERS: ATTEND Family Medicine | DX: I48.2 Chronic atrial fibrillation (principal) | CPT/HCPCS: 85610 ==

== ENCOUNTER 2018-06-10 13:38 | Outpatient (CLI) | payer MEDICARE, OTHER | END 2018-06-10 13:39 | disposition home or self-care (01) | LOC: LAB 13:38 | PROVIDERS: ATTEND Family Medicine | DX: I48.2 Chronic atrial fibrillation (principal) | CPT/HCPCS: 85610 ==

== ENCOUNTER 2018-07-16 13:27 | Outpatient (CLI) | payer MEDICARE, OTHER | END 2018-07-16 13:28 | disposition home or self-care (01) | LOC: LAB 13:27 | PROVIDERS: ATTEND Family Medicine | DX: I48.2 Chronic atrial fibrillation (principal) | CPT/HCPCS: 85610 ==

== ENCOUNTER 2018-08-27 13:09 | Outpatient (CLI) | payer MEDICARE, OTHER | END 2018-08-27 13:10 | disposition home or self-care (01) | LOC: LAB 13:09 | PROVIDERS: ATTEND Family Medicine | DX: I48.2 Chronic atrial fibrillation (principal) | CPT/HCPCS: 85610 ==

== ENCOUNTER 2018-09-11 16:25 | Outpatient (CLI) | payer MEDICARE, OTHER | END 2018-09-11 16:26 | disposition home or self-care (01) | LOC: LAB 16:25 | PROVIDERS: ATTEND Family Medicine | DX: I48.2 Chronic atrial fibrillation (principal) | CPT/HCPCS: 85610 ==

== ENCOUNTER 2018-10-27 14:02 | Outpatient (CLI) | payer MEDICARE, OTHER | END 2018-10-27 14:03 | disposition home or self-care (01) | LOC: LAB 14:02 | PROVIDERS: ATTEND Family Medicine | DX: I48.2 Chronic atrial fibrillation (principal) | CPT/HCPCS: 85610 ==

== ENCOUNTER 2018-12-04 12:15 | Outpatient (CLI) | payer MEDICARE, OTHER | END 2018-12-04 12:16 | disposition home or self-care (01) | LOC: LAB 12:15 | PROVIDERS: ATTEND Family Medicine | DX: Z79.01 Long term (current) use of anticoagulants (principal); I48.20 Chronic atrial fibrillation, unspecified | CPT/HCPCS: 85610 ==

== ENCOUNTER 2018-12-29 13:02 | Outpatient (CLI) | payer MEDICARE, OTHER | END 2018-12-29 13:03 | disposition home or self-care (01) | LOC: LAB 13:02 | PROVIDERS: ATTEND Family Medicine | DX: I48.20 Chronic atrial fibrillation, unspecified (principal); Z79.01 Long term (current) use of anticoagulants | CPT/HCPCS: 85610 ==

== ENCOUNTER 2019-01-21 14:47 | Outpatient (CLI) | payer MEDICARE, OTHER | END 2019-01-21 14:48 | disposition home or self-care (01) | LOC: LAB 14:47 | PROVIDERS: ATTEND Family Medicine | DX: I48.20 Chronic atrial fibrillation, unspecified (principal); Z79.01 Long term (current) use of anticoagulants | CPT/HCPCS: 85610 ==

== ENCOUNTER 2019-02-19 15:35 | Outpatient (CLI) | payer MEDICARE, OTHER | END 2019-02-19 15:36 | disposition home or self-care (01) | LOC: LAB 15:35 | PROVIDERS: ATTEND Family Medicine | DX: Z79.01 Long term (current) use of anticoagulants (principal); I48.20 Chronic atrial fibrillation, unspecified | CPT/HCPCS: 85610 ==

== ENCOUNTER 2019-04-01 13:48 | Outpatient (CLI) | payer MEDICARE, OTHER | END 2019-04-01 13:49 | disposition home or self-care (01) | LOC: LAB 13:48 | PROVIDERS: ATTEND Family Medicine | DX: I48.20 Chronic atrial fibrillation, unspecified (principal); Z79.01 Long term (current) use of anticoagulants | CPT/HCPCS: 85610 ==

== ENCOUNTER 2019-11-02 14:07 | Outpatient (CLI) | payer MEDICARE, OTHER ==
--- NOTE | 2019-11-03 15:19 | Mammography Report ---
BILATERAL DIGITAL SCREENING MAMMOGRAM 3D/2D: 11/02/2019 CLINICAL: Routine screening. Comparison is made to exams dated: 10/28/2018 mammogram, 12/05/2016 mammogram, 11/01/2015 mammogram, mammogram, 01/21/2013 mammogram, and 12/15/2009 mammogram - [facility]. T here are scattered fibroglandular elements in both breasts. No significant masses, calcifications, or other findings are seen in either breast. There has been no significant interval change. IMPRESSION: NEGATIVE There is no mammographic evidence of malignancy. A 1 year screening mammogram is recommended. This exam was interpreted at Station ID: [id number]. NOTE: For mammograms, a report in lay terms will be sent to the patient. Approximately 15% of breast malignancies will not be visualized mammographically. In the management of a palpable breast mass, a negative mammogram must not discourage biopsy of a clinically suspicious lesion. Electronically Signed By: Abdullahi olivares/sosa:11/02/2019 17:16:50 ACR BI-RADS Category 1: Negative [id number] PARENCHYMAL PATTERN: (A) - The breast(s) demonstrate(s) scattered fibroglandular densities. BI-RADS CATEGORY: (1) - 1 RECOMMENDATION: (ANNUAL) - Recommend routine annual screening mammography. [id number] 1 year screening LATERALITY: (B)
== END 2019-11-02 14:08 | disposition home or self-care (01) ==
LOC: DI 14:07
PROVIDERS: ATTEND Family Medicine
DX: Z12.31 Encounter for screening mammogram for malignant neoplasm of breast (principal)
CPT/HCPCS: 77063; 77067

== ENCOUNTER 2021-02-03 12:09 | Emergency (ER) | payer MEDICARE, OTHER ==
--- NOTE | 2021-02-03 12:43 | ED Physician Documentation ---
History of Present Illness - Stated complaint Stated Complaint: RT ARM NUMBNESS - Chief complaint Chief Complaint: Neuro - Additonal information Additional information: 81 year old female presents to the ED for evaluation of right arm pain and numbness as well as new balance issues that began about one hour prior to arrival. She endorses that she had a headache yesterday/last night. She is on eliquis secondary to a hx of atrial fibrillation. Reports feeling like the right side of her tongue, face, arm and leg are numb. no speech or motor deficits. states that the numbness has begun to improve since it began. Walking with a cane, steady gait, but feels "unsafe" on her right side pmh: mitral valve regurg with pulmonary htn, s/p Micra transcatheter pacemaker placement. meds: eliquis, Diltiazem 120 mg daily, prn tramadol. Cardiology: Dr. Nguyen through [facility] Review of Systems Constitutional: denies: Fever, Chills Eyes: denies: Loss of vision, Decreased vision Ears: reports: Reviewed and negative Nose: reports: Reviewed and negative Throat: reports: Reviewed and negative Cardiac: reports: Reviewed and negative Respiratory: reports: Reviewed and negative GI: denies: Abdominal Pain, Nausea, Vomiting, Constipation, Diarrhea : denies: Dysuria, Frequency, Hesitancy Skin: denies: Rash, Lesions Musculoskeletal: denies: Neck pain, Back pain Neurologic: reports: Numbness, Headache. denies: Generalized weakness, Focal weakness, Difficulty speaking, Near syncope, Syncope, Seizure, Altered mental status, Head injury, LOC PD PAST MEDICAL HISTORY - Past Medical History Cardiovascular: High cholesterol, Arrhythmia, Other Respiratory: None Endocrine/Autoimmune: None GI: Diverticulitis UNIX ADMINISTRATOR: None : None HEENT: None Psych: None Musculoskeletal: None Derm: None - Past Surgical History Past Surgical History: Yes General: Appendectomy, Bowel surgery - Present Medications Home Medications: Ambulatory Orders Medication Instructions Recorded Confirmed Multivitamin [Multi-Vitamin Daily] 1 each PO DAILY 07/03/12 07/12/14 Dronedarone HCl [Multaq] 400 mg BID 12/30/17 12/30/17 Metoprolol Tartrate BID 12/30/17 Warfarin [Coumadin] DAILY 12/30/17 - Allergies Allergies/Adverse Reactions: Allergies Allergy/AdvReac Type Severity Reaction Status Date / Time No Known Drug Allergies Allergy Verified 02/03/21 12:18 - Social History Does the pt smoke?: No Smoking Status: Never smoker Does the pt drink ETOH?: Yes Does the pt have substance abuse?: No - Immunizations Immunizations are current?: Yes Immunizations: TDAP >10years/unknown - POLST Patient has POLST: No PD ED PE EXPANDED - General General: Alert, No acute distress, Well developed/nourished - Cardiac Cardiac: Irregularly irregular, Murmur Present, Radial strong equal, Pedal strong equal, Cap refill < 2 sec - Respiratory Respiratory: Clear to ausultation tomer. No: Distress, Labored - Abdomen Abdomen: Normal Bowel sounds. No: Tender to palpation - Neuro Neuro: Alert and Oriented X 3, Normal Speech, CNII-XII intact, Normal finger nose, Normal speech. No: Normal Sensation (Subjective mild numbness right side of face tongue arm and right lower extremity) - GCS Eye Opening: Spontaneous Motor: Obeys Commands Verbal: Oriented Total: 15 Results - Vitals Vitals: Vital Signs - 24 hr 02/03/21 02/03/21 02/03/21 12:14 12:18 13:18 Temperature 36.9 C Heart Rate 62 64 60 Respiratory 16 18 15 Rate Blood Pressure 153/66 H 154/68 H O2 Saturation 98 97 98 02/03/21 02/03/21 14:06 15:21 Temperature Heart Rate 60 61 Respiratory 14 14 Rate Blood Pressure 149/56 H 141/64 H O2 Saturation 95 97 Oxygen O2 Source Room air - EKG (time done) 1253 Rate: Rate (enter#) (60) Rhythm: Atrial flutter, Atrial fibrillation, Paced Compare to prior EKG: Old EKG unavailable Computer interpretation: Agree with computer (paced afib/flutter; no other interpretation possible) - Labs Labs: Laboratory Tests 02/03/21 02/03/21 02/03/21 13:00 13:00 13:00 WBC 5.6 RBC 4.47 Hgb 13.3 Hct 41.1 MCV 91.9 MCH 29.8 MCHC 32.4 RDW 13.6 Plt Count 187 MPV 10.7 Neut # (Auto) 3.4 Lymph # (Auto) 1.5 Forest # (Auto) 0.6 Eos # (Auto) 0.1 Baso # (Auto) 0.0 Absolute Nucleated RBC 0.00 Nucleated RBC % 0.0 PT INR Sodium 137 Potassium 4.1 Chloride 103 Carbon Dioxide 24 Anion Gap 10.0 BUN 21 H Creatinine 0.8 Estimated GFR (MDRD) 69 L Glucose 97 Calcium 9.5 Total Bilirubin 0.8 AST 24 ALT 22 Alkaline Phosphatase 42 Troponin I High Sens 10.5 B-Natriuretic Peptide Total Protein 7.1 Albumin 4.2 Globulin 2.9 Albumin/Globulin Ratio 1.4 Lipase 29 Urine Color Urine Clarity Urine pH Ur Specific [place] Urine Protein Urine Glucose (UA) Urine Ketones Urine Occult Blood Urine Nitrite Urine Bilirubin Urine Urobilinogen Ur Leukocyte Esterase Urine RBC Urine WBC Ur Squamous Epith Cells Urine Bacteria Ur Microscopic Review Urine Culture Comments 02/03/21 02/03/21 02/03/21 13:00 13:00 13:04 WBC RBC Hgb Hct MCV MCH MCHC RDW Plt Count MPV Neut # (Auto) Lymph # (Auto) Forest # (Auto) Eos # (Auto) Baso # (Auto) Absolute Nucleated RBC Nucleated RBC % PT 15.8 H INR 1.4 H Sodium Potassium Chloride Carbon Dioxide Anion Gap BUN Creatinine Estimated GFR (MDRD) Glucose Calcium Total Bilirubin AST ALT Alkaline Phosphatase Troponin I High Sens B-Natriuretic Peptide 178 H Total Protein Albumin Globulin Albumin/Globulin Ratio Lipase Urine Color LT. YELLOW Urine Clarity SL. CLOUDY Urine pH 6.5 Ur Specific [place] <=1.005 Urine Protein NEGATIVE Urine Glucose (UA) NEGATIVE Urine Ketones NEGATIVE Urine Occult Blood TRACE-INTA Urine Nitrite NEGATIVE Urine Bilirubin NEGATIVE Urine Urobilinogen 0.2 (NORMAL) Ur Leukocyte Esterase SMALL H Urine RBC 0-5 Urine WBC 6-10 H Ur Squamous Epith Cells RARE Squamous Urine Bacteria None Seen Ur Microscopic Review INDICATED Urine Culture Comments INDICATED - Rads (name of study) CT head Radiology: Final report received (No acute intracranial process) Angio head Radiology: Final report received (No hemodynamically significant stenosis or occlusion of the major intracranial arterial circulation) Angio neck Radiology: Final report received (no hemodynamically significant stenosis or reduced arterial blood flow) PD MEDICAL DECISION MAKING - ED course Complexity details: reviewed results, re-evaluated patient, d/w patient, d/w recruitment consultant (Dr. gutierrez Neurology with [facility]) ED course: 81-year-old female presents emergency department for evaluation of a headache that began last night as well as abrupt onset of numbness in her right side of tongue face arm and leg. There was no focal weakness slurred speech or facial droop. She does have a past medical history that includes atrial fibrillation with a transcatheter pacer in place. She is on Eliquis and denies missing any doses. On presentation her NIH stroke score was 1 for the subjective sensation loss only. Initial CT of the head showed no bleeding. CT angio of the head and neck showed no significant intracranial stenosis lesions or reduced arterial flow. At the time of final exam with the patient the numbness had nearly fully resolved. This case was discussed with neurologist Dr. Gutierrez with [facility]. Given her otherwise well appearance and a subjective finding of loss of sensation only it is unlikely that she has any major arterial vessel occlusion. He would recommend that the patient have an outpatient MRI. However this would need to be cleared with her interviewing clerk given that she has a pacemaker. She is to continue her Eliquis. It would not be unreasonable for her to return on Saturday to have a repeat CT of the head to make sure that no stroke has blossomed over the weekend. Patient would need to return sooner for slurred speech focal weakness facial droop etc. I discussed this plan with the patient and she feels comfortable with discharge. Patient is scheduled to see her interviewing clerk Dr. Nguyen 1 week from today. She is encouraged to have an outpatient echocardiogram. Departure - Departure Disposition: 01 Home, Self Care Clinical Impression: Right facial numbness, Stroke-like symptom Condition: Stable Record reviewed to determine appropriate education?: Yes Instructions: ED Transient Ischemic Attack Follow-Up: Dusty Rowell MD [Primary Care Provider] - Comments: Agustina ken are seen in the ER today for numbness on the right side of your tongue arm and leg. The symptoms seem to have nearly fully resolved during her time here in the ER. However the symptoms are concerning for stroke-like symptoms. We did do a CT of the head, CT angiogram of the neck and head all of which did not show any bleeding or significantly reduced stenosis or reduced blood flow. You are on Eliquis secondary to your history of atrial fibrillation. You also have a pacemaker in place. Your case was discussed with the on-call neurologist Dr. Gutierrez through [facility]. It is recommended that you obtain an outpatient MRI to rule out any type of stroke. Your interviewing clerk would need to give clearance with your pacer for this to occur. Dr. Gutierrez also recommends an outpatient echocardiogram of your heart. If you develop any sudden severe headache, have facial droop, slurred speech, or weakness in your arms or legs you are to return immediately to any emergency department. NIHSS - Time Time: 12:50 - Level of Consciousness Level of consciousness: (0) Alert, Keenly responsive LOC Questions: (0) Answers both Q's correct LOC Commands: (0) Performs both correctly - Gaze Best Gaze: (0) Normal - Visual Visual: (0) No loss - Facial Palsy Facial Palsy: (0) Normal, symmetrical movement - Motor Arms (both separate) Motor Arm (right): (0) No drift Motor Arm (left): (0) No drift - Motor Legs (both separate) Motor Leg (right): (0) No drift Motor Leg (left): (0) No drift - Limb Ataxia Limb Ataxia: (0) Absent - Sensory Sensory: (1) Twch-yh-lvmkvftn loss - Best Language Best Language: (0) No aphasia - Dysarthria Dysarthria: (0) Normal - Extinction and Inattention (formally neg Extinction and inattention: (0) No abnormality - Total Score/Results Total Score/Result: 1
--- NOTE | 2021-02-03 12:55 | CT Report ---
PROCEDURE: HEAD WO INDICATIONS: headache right sided deficit TECHNIQUE: Noncontrast 4.5 mm thick angled axial sections acquired from the foramen magnum to the vertex. For r adiation dose reduction, the following was used: automated exposure control, adjustment of mA and/or kV according to patient size. COMPARISON: None. FINDINGS: Image quality: Excellent. CSF spaces: Basal cisterns are patent. No extra-axial fluid collections. Ventricles are normal in size and shape. Brain: No midline shift. No intracranial masses or hemorrhage. Alvarado-white matter interface is norm al. Skull and face: Calvarium and visualized facial bones are intact, without suspicious lesions. Sinuses: Visualized sinuses and mastoids are clear. IMPRESSION: No acute intracranial process. Reviewed by: Martínez Segal MD on 02/03/2021 12:54 PM [facility] Approved by: Martínez Segal MD on 02/03/2021 12:54 PM [facility] Station ID: [id number]
[2021-02-03 13:18] LABS: BASOPHILS % (AUTO) 0.7 %; EOSINOPHILS # (AUTO) 0.1 10^3/uL (0.0-0.7); EOSINOPHILS % (AUTO) 1.1 %; HCT - HEMATOCRIT 41.1 % (37.0-47.0); HGB - HEMOGLOBIN 13.3 g/dL (12.0-16.0); LYMPHOCYTES # (AUTO) 1.5 10^3/uL (1.5-3.5); LYMPHOCYTES % (AUTO) 26.3 %; MEAN CORPUSCULAR HEMOGLOBIN 29.8 pg (27.0-31.0); MEAN CORPUSCULAR HGB CONC 32.4 g/dL (32.0-36.0); MEAN CORPUSCULAR VOLUME 91.9 fL (81.0-99.0); MEAN PLATELET VOLUME 10.7 fL (7.9-10.8); MONOCYTES # (AUTO) 0.6 10^3/uL (0.0-1.0); MONOCYTES % (AUTO) 10.4 %; NEUTROPHILS # (AUTO) 3.4 10^3/uL (1.5-6.6); PLT - PLATELET COUNT 187 10^3/uL (130-450); RED BLOOD COUNT 4.47 10^6/uL (4.20-5.40); RED CELL DISTRIBUTION WIDTH 13.6 % (12.0-15.0); WHITE BLOOD COUNT 5.6 x10^3/uL (4.8-10.8)
[2021-02-03 13:30] LABS: INR 1.4 (0.8-1.2); PT - PROTHROMBIN TIME 15.8 secs (9.9-12.6)
[2021-02-03 13:31] LABS: ALBUMIN 4.2 g/dL (3.2-5.5); ALBUMIN/GLOBULIN RATIO 1.4 (1.0-2.2); BILIRUBIN,TOTAL 0.8 mg/dL (0.2-1.0); CALCIUM 9.5 mg/dL (8.5-10.3); CREATININE 0.8 mg/dL (0.4-1.0); POTASSIUM 4.1 mmol/L (3.5-5.0); TOTAL PROTEIN 7.1 g/dL (6.7-8.2)
[2021-02-03 13:39] LABS: BILIRUBIN,URINE NEGATIVE (NEGATIVE); GLUCOSE, URINE (UA) NEGATIVE (NEGATIVE); KETONES,URINE (UA) NEGATIVE (NEGATIVE); LEUKOCYTE ESTERASE, URINE SMALL (NEGATIVE); NITRITE,URINE NEGATIVE (NEGATIVE); OCCULT BLOOD,URINE TRACE-INTA (NEGATIVE); PH,URINE 6.5 PH (5.0-7.5); PROTEIN,URINE NEGATIVE (NEGATIVE); UROBILINOGEN,URINE 0.2 (NORMAL) E.U./dL (NORMAL)
--- NOTE | 2021-02-03 13:42 | XRAY Report ---
PROCEDURE: Chest 1 View X-Ray INDICATIONS: chest pain TECHNIQUE: One view of the chest was acquired. COMPARISON: 02/14/2018 FINDINGS: Surgical changes and devices: Cardiac leadless pacer Lungs and pleura: Scattered subsegmental scarring/atelectasis. No acute consolidation. No pleural e ffusion or pneumothorax. Mediastinum: Mediastinal contours appear normal. Heart size is normal. Bones and chest wall: No suspicious bony lesions. Overlying soft tissues appear unremarkable. IMPRESSION: Scattered subsegmental scarring/atelectasis. No acute consolidation. No pleural effusion or pneumoth orax. Reviewed by: Martínez Segal MD on 02/03/2021 1:40 PM PST Approved by: Martínez Segal MD on 02/03/2021 1:40 PM [facility] Station ID: [id number]
[2021-02-03 13:46] LABS: CLARITY,URINE SL. CLOUDY (CLEAR)
[2021-02-03 13:56] LABS: BACTERIA,URINE None Seen /HPF (None Seen); RBC,URINE 0-5 /HPF (0-5); SQUAMOUS EPITHELIAL CELL,UR RARE Squamous (<= Few)
--- NOTE | 2021-02-03 15:04 | CT Report ---
PROCEDURE: ANGIO HEAD W/WO INDICATIONS: Left-sided facial droop CONTRAST: IV CONTRAST: Optiray 320 ml: 80 PO CONTRAST: *NO PO CONTRAST TECHNIQUE: Precontrast 4.5 mm thick angled axial sections acquired from the foramen magnum to the vertex. Afte r the administration of intravenous contrast, 1 mm thick sections acquired through the [place] of [place] is. Postcontrast 4.5 mm thick sections then re-acquired from the foramen magnum to the vertex. 3-di mensional ykqtoqf-igalpeiax-xiybdfkrpz (MIP) and/or volume rendering reformats were acquired of the c entral intracranial vasculature. For radiation dose reduction, the following was used: automated ex posure control, adjustment of mA and/or kV according to patient size. COMPARISON: None. FINDINGS: Image quality: Excellent. Anterior circulation: Intracranial internal carotid arteries are normal in size and flow. The flow within the paired anterior cerebral arteries is normal and symmetric. The flow within the middle cer ebral arteries is normal and symmetric. The anterior communicating artery is seen. No aneurysms are seen. Posterior circulation: Visualized portions of the vertebral arteries demonstrate normal caliber, and join to form a normal appearing basilar artery. Flow within the posterior cerebral arteries is norm al and symmetric. No aneurysms are seen. CSF spaces: Ventricles are normal in size and shape. Basal cisterns are patent. No extra-axial flu id collections. Brain: No midline shift. No intracranial bleeds or masses. Alvarado-white matter interface appears int act. Skull and face: Calvarium and facial bones appear intact, without suspicious lesions. Sinuses: Visualized sinuses and mastoids are clear. IMPRESSION: No hemodynamically significant stenosis or occlusion the major intracranial arterial circulation. Reviewed by: Andres Holman MD on 02/03/2021 2:03 PM [facility] Approved by: Andres Holman MD on 02/03/2021 2:03 PM [facility] Station ID: [id number]
--- NOTE | 2021-02-03 15:11 | CT Report ---
PROCEDURE: ANGIO NECK W INDICATIONS: L sided facial droop, L neck pain CONTRAST: IV CONTRAST: Optiray 320 ml: 80 PO CONTRAST: *NO PO CONTRAST TECHNIQUE: After the administration of intravenous contrast, 1.5 mm axial sections acquired from the aortic arch to the [place] of [place]. Coronal 3-D maximum intensity projection (MIP) and/or volume rendering ref ormats were then performed. For radiation dose reduction, the following was used: automated exposur e control, adjustment of mA and/or kV according to patient size. COMPARISON: None. FINDINGS: Image quality: Excellent. Carotid system: The great vessels demonstrate a conventional anatomy as they arise from the aortic a rc. The origins of the common carotid arteries appear patent. The common carotid arteries demonstr ate normal calibers and courses. The bifurcation regions appear normal bilaterally. The internal ca rotid arteries demonstrate normal caliber and course. Posterior circulation: The origins of the vertebral arteries appear patent. The more superior porti ons of the vertebral arteries demonstrate normal course and caliber. They join to form a normal appe aring basilar artery. Soft tissues: Visualized neck soft tissues demonstrate no suspicious abnormalities. The thyroid is normal in size and there are no incidental findings. Bones: No suspicious bony lesions. Visualized cervical spine appears normally aligned. IMPRESSION: No hemodynamically significant stenosis or occlusion. No evidence of acute vascular injury. The estimate of stenosis included in the report of the imaging study was calculated using the NASCET method Reviewed by: Andres Holman MD on 02/03/2021 2:10 PM [place] Approved by: Andres Holman MD on 02/03/2021 2:10 PM [facility] Station ID: [id number]
[2021-02-03] MEDS ORDERED: IOVERSOL 320 100 ML VIAL IVP ONE (15:15)
[2021-02-03 15:23] VITALS: BP 141/64
== END 2021-02-03 16:20 | disposition home or self-care (01) ==
LOC: ED 12:09
DX: R29.90 Unspecified symptoms and signs involving the nervous system (principal); R20.0 Anesthesia of skin; I48.91 Unspecified atrial fibrillation; Z79.01 Long term (current) use of anticoagulants; Z95.0 Presence of cardiac pacemaker; R68.89 Other general symptoms and signs; I48.92 Unspecified atrial flutter; I27.22 Pulmonary hypertension due to left heart disease
CPT/HCPCS: 36415; 70450; 70496; 70498; 71045; 80053; 81001; 83690; 83880; 84484; 85025; 85610; 87086; 93005; 99284; Q9967; 81003

== ENCOUNTER 2022-09-04 07:56 | Outpatient (CLI) | payer MEDICARE, OTHER ==
[2022-09-04 08:21] LABS: BASOPHILS % (AUTO) 0.7 %; EOSINOPHILS # (AUTO) 0.1 10^3/uL (0.0-0.7); EOSINOPHILS % (AUTO) 1.9 %; HCT - HEMATOCRIT 46.1 % (37.0-47.0); HGB - HEMOGLOBIN 14.1 g/dL (12.0-16.0); LYMPHOCYTES # (AUTO) 1.2 10^3/uL (1.5-3.5); LYMPHOCYTES % (AUTO) 20.5 %; MEAN CORPUSCULAR HEMOGLOBIN 29.4 pg (27.0-31.0); MEAN CORPUSCULAR HGB CONC 30.6 g/dL (32.0-36.0); MEAN CORPUSCULAR VOLUME 96.2 fL (81.0-99.0); MEAN PLATELET VOLUME 10.7 fL (7.9-10.8); MONOCYTES # (AUTO) 0.6 10^3/uL (0.0-1.0); NEUTROPHILS # (AUTO) 3.7 10^3/uL (1.5-6.6); NEUTROPHILS % (AUTO) 65.7 %; PLT - PLATELET COUNT 193 10^3/uL (130-450); RED BLOOD COUNT 4.79 10^6/uL (4.20-5.40); RED CELL DISTRIBUTION WIDTH 14.1 % (12.0-15.0); WHITE BLOOD COUNT 5.7 x10^3/uL (4.8-10.8)
[2022-09-04 08:35] LABS: ALBUMIN 4.1 g/dL (3.2-5.5); ALBUMIN/GLOBULIN RATIO 1.4 (1.0-2.2); ALKALINE PHOSPHATASE 57 IU/L (42-121); ALT ALANINE AMINOTRANSFERASE 15 IU/L (10-60); AST ASPARTATE AMINOTRANSFERASE 22 IU/L (10-42); BILIRUBIN,TOTAL 0.5 mg/dL (0.2-1.0); BUN - BLOOD UREA NITROGEN 22 mg/dL (6-20); CARBON DIOXIDE - CO2 22 mmol/L (21-32); CHLORIDE 105 mmol/L (101-111); CHOL/HDL RATIO 2.8 (<4.4); CHOLESTEROL 262 mg/dL; CREATININE 0.7 mg/dL (0.4-1.0); GFR - MDRD 80 (>89); GLUCOSE 111 mg/dL (70-100); HDL CHOLESTEROL 92 mg/dL; LDL CHOLESTEROL,CALCULATED 160 mg/dL; LDL/HDL RATIO 1.7 (<4.4); POTASSIUM 4.1 mmol/L (3.5-5.0); SODIUM 140 mmol/L (135-145); TRIGLYCERIDES 49 mg/dL; VLDL CHOLESTEROL 10 mg/dL
== END 2022-09-04 07:57 | disposition home or self-care (01) ==
LOC: LAB 07:56
PROVIDERS: ATTEND Family Medicine
DX: I63.9 Cerebral infarction, unspecified (principal)
CPT/HCPCS: 36415; 80053; 80061; 83721; 85025

== ENCOUNTER 2022-10-02 08:00 | Outpatient (CLI) | payer MEDICARE, OTHER ==
--- NOTE | 2022-10-02 17:08 | XRAY Report ---
PROCEDURE: Ankle 3 View RT INDICATIONS: RIGHT ANKLE PAIN TECHNIQUE: 3 views of the ankle were acquired. COMPARISON: None. FINDINGS: Bones: No fractures or dislocations. Ankle mortise is normally aligned. No suspicious bony lesions . Moderate arthritic changes present at the tibiotalar joint space. Soft tissues: No tibiotalar joint effusion. Achilles tendon appears normal. IMPRESSION: Moderate tibiotalar arthritic change. Reviewed by: Tamiko Hedrick MD on 10/02/2022 5:07 PM PDT Approved by: Tamiko Hedrick MD on 10/02/2022 5:07 PM PDT Station ID: [id number]
--- NOTE | 2022-10-02 17:10 | XRAY Report ---
PROCEDURE: Knee 4 View BILAT INDICATIONS: BILAT KNEE PAIN TECHNIQUE: 4 views of the bilateral knee(s) were acquired. COMPARISON: None. FINDINGS: Bones: No fractures or dislocations. No suspicious bony lesions. There is severe right medial and moderate to severe left medial as well as moderate right lateral and minimal left lateral compartmen t narrowing. Bilateral mild to moderate patellofemoral compartment narrowing. Significant periarticul ar osteophytes are present more severe on the right. No erosions. Soft tissues: No knee joint effusion. No suspicious soft tissue calcifications or masses. IMPRESSION: Moderate to severe tricompartmental arthritic change bilaterally. Reviewed by: Tamiko Hedrick MD on 10/02/2022 5:08 PM PDT Approved by: Tamiko Hedrick MD on 10/02/2022 5:08 PM PDT Station ID: [id number]
== END 2022-10-02 23:59 | disposition home or self-care (01) ==
LOC: DI.WOS 08:00
PROVIDERS: ATTEND Physician Assistant Surgical
DX: M17.0 Bilateral primary osteoarthritis of knee (principal); M19.071 Primary osteoarthritis, right ankle and foot

== ENCOUNTER 2023-06-14 08:00 | Outpatient (CLI) | payer MEDICARE, OTHER ==
[2023-06-14 08:21] LABS: BASOPHILS % (AUTO) 0.7 %; EOSINOPHILS # (AUTO) 0.1 10^3/uL (0.0-0.7); EOSINOPHILS % (AUTO) 1.4 %; HGB - HEMOGLOBIN 14.1 g/dL (12.0-16.0); LYMPHOCYTES # (AUTO) 1.5 10^3/uL (1.5-3.5); MEAN CORPUSCULAR HEMOGLOBIN 29.5 pg (27.0-31.0); MEAN CORPUSCULAR HGB CONC 31.3 g/dL (32.0-36.0); MEAN CORPUSCULAR VOLUME 94.1 fL (81.0-99.0); MEAN PLATELET VOLUME 10.2 fL (7.9-10.8); MONOCYTES # (AUTO) 0.6 10^3/uL (0.0-1.0); MONOCYTES % (AUTO) 10.5 %; NEUTROPHILS # (AUTO) 3.4 10^3/uL (1.5-6.6); NEUTROPHILS % (AUTO) 60.2 %; PLT - PLATELET COUNT 206 10^3/uL (130-450); RED BLOOD COUNT 4.78 10^6/uL (4.20-5.40); RED CELL DISTRIBUTION WIDTH 13.6 % (12.0-15.0); WHITE BLOOD COUNT 5.6 x10^3/uL (4.8-10.8)
[2023-06-14 08:36] LABS: ALBUMIN 4.4 g/dL (3.2-5.5); ALBUMIN/GLOBULIN RATIO 1.6 (1.0-2.2); ALKALINE PHOSPHATASE 69 IU/L (42-121); ALT ALANINE AMINOTRANSFERASE 13 IU/L (10-60); AST ASPARTATE AMINOTRANSFERASE 17 IU/L (10-42); BILIRUBIN,TOTAL 0.7 mg/dL (0.2-1.0); BUN - BLOOD UREA NITROGEN 21 mg/dL (6-20); CALCIUM 10.1 mg/dL (8.5-10.3); CARBON DIOXIDE - CO2 27 mmol/L (21-32); CHLORIDE 105 mmol/L (101-111); CHOL/HDL RATIO 2.7 (<4.4); CHOLESTEROL 248 mg/dL; CREATININE 0.8 mg/dL (0.6-1.3); GFR - MDRD 69 (>89); GLUCOSE 102 mg/dL (74-104); HDL CHOLESTEROL 91 mg/dL; LDL CHOLESTEROL,CALCULATED 133 mg/dL; LDL/HDL RATIO 1.5 (<4.4); POTASSIUM 4.1 mmol/L (3.5-4.5); SODIUM 139 mmol/L (135-145); TOTAL PROTEIN 7.1 g/dL (6.4-8.9); TRIGLYCERIDES 118 mg/dL (48-352); VLDL CHOLESTEROL 24 mg/dL
[2023-06-14 08:51] LABS: THYROID STIMULATING HORMONE 3.59 uIU/mL (0.34-5.60)
== END 2023-06-14 08:01 | disposition home or self-care (01) ==
LOC: LAB 08:00
PROVIDERS: ATTEND Family Medicine
DX: I48.91 Unspecified atrial fibrillation (principal); I42.1 Obstructive hypertrophic cardiomyopathy; M17.0 Bilateral primary osteoarthritis of knee
CPT/HCPCS: 36415; 80053; 80061; 83721; 84443; 85025

== ENCOUNTER 2023-09-16 10:23 | Outpatient (CLI) | payer MEDICARE, OTHER ==
--- NOTE | 2023-09-16 22:02 | XRAY Report ---
PROCEDURE: Knee 4+V BL INDICATIONS: DEGENERATIVE JOINT DISEASE BOTH KNEES TECHNIQUE: 4 views of the knee(s) were acquired. COMPARISON: X-ray knee 10/02/2022 FINDINGS: Bones: No fractures or dislocations. No suspicious bony lesions. Left knee demonstrates severe medial and patellofemoral compartment narrowing, minimal laterally. Med ial compartment demonstrates oj[place]-ju-nyku with particular osteophytes. No erosions. Overall appearanc e is progressive compared to prior exam particularly within the medial compartment. Right knee demonstrates severe medial and moderate to severe patellofemoral as well as mild to modera te lateral compartment narrowing. Medial compartment demonstrates bone on bone with subchondral peria rticular osteophytes. No distinct erosions. Overall appearance is relatively stable compared to prior exam. Soft tissues: Mild bilateral knee joint effusion. No suspicious soft tissue calcifications or masses . IMPRESSION: Severe medial compartment arthritis bilaterally which has become progressive on the left compared to prior exam. Reviewed by: Tamiko Hedrick MD on 09/16/2023 10:00 PM PDT Approved by: Tamiko Hedrick MD on 09/16/2023 10:00 PM PDT Station ID: [id number]
== END 2023-09-16 10:24 | disposition home or self-care (01) ==
LOC: DI 10:23
PROVIDERS: ATTEND Physician Assistant Surgical
DX: M17.0 Bilateral primary osteoarthritis of knee (principal)